=== PATIENT | female | born 1965 | race Caucasian/White ===

== ENCOUNTER 2022-04-22 07:30 | Outpatient (RCR) | payer OTHER, SELFPAY | END 2022-06-24 14:27 | disposition home or self-care (01) | PROVIDERS: PCP Orthopaedic Surgery; Visit Provider Orthopaedic Surgery | DX: Z98.890 Other specified postprocedural states (principal); Z51.89 Encounter for other specified aftercare | CPT/HCPCS: 97110; 97116; 97162 ==

== ENCOUNTER 2024-11-10 12:15 | Emergency (ER) | payer BC, SELFPAY ==
[2024-11-10] VITALS (10 sets, daily range): BP systolic 147; BP diastolic 80; PULSE 67; RESP 11–21; TEMP 36.5; O2SAT 97; BMI 35.4
--- OUTSIDE RECORDS SUMMARY | 2024-11-10 12:17 | XMS_ITS | Clinical Summary ---
Author Organization [facility] Address [address] [place] [address] Care Team Providers Care Price Checker Name Role Phone Tess Macias Primary Care Provider [phone] Allergies No known active allergies Medications multivitamin (MVI) tablet Take 1 tablet by mouth once daily. 0 09/06/2010 Active fexofenadine (JOSUE) 180 mg tablet Take 1 tablet by mouth once daily with a meal. 0 10/11/2011 Active cholecalciferol (VITAMIN D3) 2,000 unit capsule Take 2 capsules by mouth once daily. 0 06/14/2013 Active fluticasone (50 mcg per actuation) nasal solution (FLONASE)Indica tions:Seasonal allergies Inhale 1-2 Sprays into affected nostril(s) once daily. 48 g 3 03/08/2024 Active estradioL (ESTRACE) 1 mg tabletIndicatio ns:Hot flashes due to menopause Take 1 Tablet (1 mg) by mouth once daily. 90 Tablet 1 06/06/2024 Active levothyroxine (SYNTHROID) 125 mcg tabletIndicatio ns:Hypothyroidi sm, adult Take 1 Tablet (125 mcg) by mouth before breakfast. 90 Tablet 2 06/05/2024 Active losartan 50 mg tabletIndicatio ns:HTN (hypertension) Take 1 Tablet (50 mg) by mouth once daily. 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 ee 10/02/2023 Primary osteoarthritis of right knee 09/15/2023 S/P left knee arthroscopy 03/15/2022 Pes anserinus tendinitis and bursitis 03/15/2022 HTN (hypertension) 01/28/2022 Chronic pain of left knee 12/25/2020 History of left knee surgery 12/25/2020 Arthritis of left knee 12/25/2020 Iliotibial band tendinitis of left side 12/26/19 21 Routine adult health maintenance 04/24/2019 Overview (04/24/2019): Colonoscopy 04/2019 normal, repeat in 10 years Seasonal allergies 10/21/2013 Unspecified hypothyroidism 06/04/2010 Resolved Problems Problem Noted Date Diagnosed Date Resolved Date Genetic disorder 09/06/2010 03/02/2024 Overview (12/29/2015): Fh of stomach cancer gene but patient never tested. Choose not to be tested Paternal side cousin and possibly another cousin may have from this issue Possibly her paternal uncle CDH1 + in family Encounters Date Type Department Care Team Description 09/17/2024 7:30 AM CDT Office Visit [facility] [address] [place] [address] Tess Macias PA Follow Up (Recheck BP and lab) 09/16/2024 Travel 09/07/[address] [facility] [address] [place] [address] Tess Macias PA Refill Request (Omeprazole) 08/20/2024 9:00 AM CDT Nurse/Clinic Staff Only [facility] [address] [facility] [place] [address] 08/20/2024 Travel from Last 3 Months Immunizations Immunization Administration Dates Next Due COVID-19 vaccine (Moderna 100mcg/0.5mL) PF, MDV 09/03/2020,08/10/2020 HepA-HepB (Twinrix) 09/04/2004, 5,03/12/2004,2003 Hepatitis A (Adult) 09/04/2004 Hepatitis B (Adult) 09/04/2004 INFLUENZA, IIV3 PF (AGE >= 6 MO) 03/21/2024 Influenza Virus, Unspecified 03/06/2018 Influenza, IIV3 (Age >=3 years) 02/25/20 14,02/15/2011,03/14/2008,1998 Influenza, IIV4 03/03/2023, 2,02/17/2021,2019,03/05/2019 Influenza, IIV4 (=>6mos) MDV 03/18/2019, 02/20/2018,02/16/2017,2015,03/04/2015 Influenza,LAIV4 Live Intrana rodney (Flumist) 02/24/2014 Td (Age >=7 Years) 12/13/2001,11/20/2001 Tdap 08/04/2019,09/06/2010 Zoster (Shingrix-RZV, recombinant) 08/06/2019,,01/05/2019 Family History Medical History Relation Name Comments Cancer Brother skin precancero us Heart Disease Father Other Father genetic stomach cancer rare disease /cateracs Stroke Father Thyroid Disease Father Cancer-breast Maternal Aunt Cancer-breast Maternal Grandmother Cancer-colon Mother age 65 Hypertension Mother Other Mother falls, now age 78. hx closed head trauma Cancer Sister skin precancero us Anesthesia Problem No Family History Relation Name Status Comments Brother Father Maternal Aunt Maternal Grandmother Mother Sister Social History Tobacco Use Types Packs/Day Years Used Date Smoking Tobacco: Former Cigarettes Q uit: 05/22/1995 Smokeless Tobacco: Never Tobacco Cessation:Counseling Given: Yes Alcohol Use Standard Drinks/Week Comments Yes 0 (1 standard drink = 0.6 oz pur e alcohol) PHQ-2 Answer Date Recorded PHQ-2 TOTAL SCORE 2 09/17/2024 Social Connections Answer Date Recorded Do you often feel lonely or isolated from those around you? 0 02/29/2024 Alcohol Use Answer Date Recorded How often do you have a drink containing alcohol ? 3 02/17/2022 How many drinks containing a lcohol do you have on a typical day when you are drinking? 0 02/17/2022 How often do you have five or more drinks on one occasion? 0 02/17/2022 Financial Resource Strain Answer Date R ecorded Difficulty of Paying Living Expenses 3 02/29/2024 Difficulty of Paying Living Expenses Not on file 02/29/2024 Food Insecurity Answer Date Recorded Do you worry your food will run out before you are able to buy more? 1 02/29/2024 Transportation Needs Answer Date Record ed Does lack of transportation keep you from medica l appointments? 1 02/29/2024 Does lack of transportation keep you from work, meetings or getting things that you need? 1 02/29/2024 Housing Stability Answer Date Recorded What is your housing situation today? 1 02/29/2024 Utilities Answer Date Recorded Do you have trouble paying f or utilities (for example, heat, electricity, water, phone)? 1 02/29/2024 Comments No Sex and Gender Information Value Date Recorded Sex Assigned at Female 06/08/2021 10:06 PM LOCAL DELIVERY TRUCK DRIVER Legal Sex Female 6:06 AM LOCAL DELIVERY TRUCK DRIVER Gender Identity Female 06/08/2021 10:06 PM LOCAL DELIVERY TRUCK DRIVER Sexual Orientation Straight 06/08/2021 10 :06 PM LOCAL DELIVERY TRUCK DRIVER Obstetrics History Para Term AB IAB SAB Ectopic Multiple Livin g Live Births 0 0 0 0 0 0 0 0 0 0 Last Filed Vital Signs Vital Sign Reading Time Taken Comments Blood Pressure 134/84 09/17/2024 7:35 AM CDT Pulse 76 09/17/2024 7:35 AM CDT Temperature 36.8 C (98.2 F) 07/12/2024 7:17 AM LOCAL DELIVERY TRUCK DRIVER Respiratory Rate 16 02/03/2022 4:00 PM CDT Oxygen Saturation 96% 09/17/2024 7:35 AM CDT Inhaled Oxygen Concentration - - Weight 97.1 kg (214 lb) 09/17/2024 7:35 AM CDT Height 164.2 cm (5' 4.65) 12/28/2023 11:54 AM C DT Body Mass Index 36 12/28/2023 11:54 AM CDT Plan of Treatment Upcoming Encounters Date Type Department Care Team (Late st Contact Info) Description 12/06/2024 8:00 AM CDT Office [facility] [address] [place] [address] Boni Morley MD [address] [facility] [address] [place] [address] Health Maintenance Due Date Last Done Comments Pneumococcal series for age 50+ (1 of 1 - PCV) 2014 COVID-19 vaccine series (5 - 2023- season) 2024 03/30/2022, 03/29/2021, 09/03/2020, Additional history exists RSV vaccine for adults or (1 - Risk 60-74 years 1-dose series) 2024 BMI (ht and wt on same day) for age 18+ 12/27/2024 12/28/2023, 11/02/2023, 03/03/2023, Additional history exists Mammogram for age 45-75 03/11/2025 03/11/20 24, 05/10/2022, 05/29/2018, Additional history exists Depression screening for age 12+ 09/17/2025 09/17/2024, 03/03/2023, 03/02/2023, Additional history exists Colonoscopy through age 75 04/24/202904/24, 04/24/2019, 04/24/2019 Tetanus booster 08/03/2029 08/04/2019, 08/20, 12/13/2001, Additional history exists Lipids for age 45-75 09/17/2029 09/17/2024, 03/03/2023, 06/23/2021, Additional history exists Hepatitis B series for 19+ Completed 09/04, 09/04/2004, 08/25/2004, Additional history exists Hepatitis C screening for ag e 18-79 Completed 07/09/2014 Tdap Completed 08/04/2019, 09/06/2010 Zoster (shingles) series for age 50+ Completed 08/06/2019, 01/05/2019, 01/05/2019 HIV for age 15-65 Completed 03/03/2023 Influenza Vaccine Completed 03/21/2024, , 02/17/2022, Additional history exists Procedures Procedure Name Priority Date/Time Associated Diagnosis Comments BASIC METABOLIC PANEL Routine 09/17/2024 8:17 AM CDT HTN (hypertension) LIPID PANEL W REFLEX MEASURED LDL Routine 09/17/2024 8:17 AM CDT Screening cholesterol level HEMOGLOBIN A1C Routine 09/17/2024 8:17 AM CDT Diabetes mellitus screening XR MAMMO KATIA BILAT SCREEN Routine 03/11/2024 7:54 AM CDT Visit for screening mammogram ANTI HIV 1/2 Routine 03/03/2023 9:10 AM CDT Screening for HIV (human immunodeficiency virus) COLONOSCOPY 04/24/2019 8:41 AM LOCAL DELIVERY TRUCK DRIVER ANTI HCV Routine 07/09/2014 9:38 AM LOCAL DELIVERY TRUCK DRIVER Need for hepatitis C screening test from Last 3 Months or Most Recently Relevant to Health Maintenance Results * HEMOGLOBIN A1C (09/17/2024 8:17 AM CDT) HEMOGLOBIN A1C 5.6 <5.7 % [facility] Comment: For the purpose of screening for the presence of diabetes: <5.7% Consistent with the absence of diabetes 5.7-6.4% Consistent with increased risk for diabetes (prediabetes) > or =6.5% Consistent with diabetes This assay result is consistent with a decreased risk of diabetes. Currently, no consensus exists regarding use of hemoglobin A1c for diagnosis of diabetes in children. According to [place] [employer] (ADA) guidelines, hemoglobin A1c <7.0% represents optimal control in non- diabetic patients. Different metrics may apply to specific patient populations. Standards of Medical Care in Diabetes(ADA). Blood BLOOD SPECIMEN / Unknown 09/17/2024 8:17 AM CDT 09/17/2024 8:18 AM CDT us Tess POLO CHEMISTRY Final Resu lt Performing Organization Address [facility]/ZIP Co de Phone Number [facility] [address] [place] [address], [facility] [address] [place] [address] * (ABNORMAL) LIPID PANEL W REFLEX MEASURED LDL (09/17/2024 8:17 AM CDT) CHOLESTEROL, TOTAL 187 <200 mg/dL [facility] HDL CHOLESTEROL 54 > OR = 50 mg/dL [facility] TRIGLYCERIDES 118 <150 mg/dL [facility] LDL-CHOLESTEROL 110(H) mg/dL (calc) [facility] Comment: Reference range: <100 Desirable range <100 mg/dL for primary prevention; <70 mg/dL for patients with CHD or diabetic patients with > or = 2 CHD risk factors. LDL-C is now calculated using the Cm calculation, which is a validated novel method providing better accuracy than the Friedewald equation in the estimation of LDL-C. Guillermo SS et al. HERMELINDO. 2013;310(19): 2663-8225 (http://education.Zample/faq/QFG889) CHOL/HDLC RATIO 3.5 <5.0 (calc) [facility] NON HDL CHOLESTEROL 133(H) <130 mg/dL (calc) [facility] Comment: For patients with diabetes plus 1 major ASCVD risk factor, treating to a non-HDL-C goal of <100 mg/dL (LDL-C of <70 mg/dL) is considered a therapeutic option. Blood BLOOD SPECIMEN / Unknown 09/17/2024 8:17 AM CDT 09/17/2024 8:18 AM CDT Tess POLO CHEMISTRY Final Resu lt Performing Organization Address City/[facility]/ZIP Co de Phone Number [facility] [address] [place] [address], [facility] [address] [place] [address] * BASIC METABOLIC PANEL (09/17/2024 8:17 AM CDT) GLUCOSE 94 65 - 99 mg/dL [facility] Comment: Fasting reference interval UREA NITROGEN (BUN) 12 7 - 25 mg/dL [facility] CREATININE 0.76 0.50 - 1.05 mg/dL [facility] EGFR 90 > OR = 60 mL/min/1. 73m2 [facility] BUN/CREATININE RATIO SEE NOTE: 6 - 22 (calc) [facility] Comment: Not Reported: BUN and Creatinine are within reference range. SODIUM 139 135 - 146 mmol/L [facility] POTASSIUM 4.8 3.5 - 5.3 mmol/L [facility] CHLORIDE 105 98 - 110 mmol/L [facility] CARBON DIOXIDE 27 20 - 32 mmol/L [facility] ELECTROLYTE BALANCE 7 7 - 17 mmol/L (calc) [facility] CALCIUM 9.6 8.6 - 10.4 mg/dL [facility] Blood BLOOD SPECIMEN / Unknown 09/17/2024 8:17 AM CDT 09/17/2024 8:18 AM CDT us Tess POLO CHEMISTRY Final Resu lt [facility] [address] [place] [address], [facility] [address] [place] [address] * XR MAMMO KATIA BILAT SCREEN (03/11/2024 7:54 AM CDT) Anatomical Region Laterality Modality BREASTS, Breast Left, Breast Right Bilateral Mammography Impressions 03/11/2024 3:03 PM CDT There is no radiographic evidence for malignancy. Recommend annual mammograms. MAMMOGRAM ASSESSMENT: ACR 1 Negative PATIENTS: You will also receive a letter with your examination results in an easy to read format. If you have questions about your results, please contact your referring provider. Narrative 03/11/2024 3:03 PM CDT For Patients: As a result of the Century Cures Act, medical imaging exams and procedure reports are released immediately into your electronic medical record. You may view this report before your referring provider. If you have questions, please contact your health care provider. XR MAMMO KATIA BILAT SCREEN [[id number]] CLINICAL HISTORY: This is an asymptomatic 58 y.o. patient. INDICATION FOR EXAM: Mammogram Screening. TECHNIQUE: CC & MLO views were obtained. This study was evaluated with the assistance of Computer-Aided Detection. Breast Tomosynthesis was used in interpretation. COMPARISON FILM: Yes 05/10/22 [facility] 05/29/18 [facility] [employer] FINDINGS: There are scattered areas of fibroglandular density. There are no dominant masses, suspicious micro calcifications or areas of architectural distortion. Tess POLO MAMMO Final Resu lt * ANTI HIV 1/2 (03/03/2023 9:10 AM CDT) HIV-1/HIV-2 SCREEN Non-Reacti ve Non-Reacti ve 03/03/2023 5:10 PM CDT [facility] Comment:HIV-1 p24 and HIV-1/ HIV-2 Ab Not Detected. Blood BLOOD SPECIMEN / Unknown Venipuncture / Unknown 03/03/2023 9:10 AM CDT 03/03/2023 9:11 AM CDT Tess POLO SEND OUTS Final Resu lt [facility] [address] [place] [address], * COLONOSCOPY (04/24/2019 8:41 AM LOCAL DELIVERY TRUCK DRIVER) 04/24/2019 8:41 AM LOCAL DELIVERY TRUCK DRIVER Narrative Transcriptions Guillermo Conway MD - 04/24/2019 9:41 AM CST Patient Name: Josie Varghese Procedure Date: 04/24/2019 Gender: Female Date of : 1965 Admit Type: Outpatient Procedure: Colonoscopy Proceduralist: Guillermo Conway MD , Kenyatta Enriquez (Nurse) Indications/Pre-Op Diagnosis: Screening for colorectal malignant neoplasm, Last CT colonoscopy: 1998 Medications: Fentanyl 100 micrograms IV, Midazolam 4 mgIV, The level of sedation administered wasmoderate Procedure Description: The patient had risks, benefits and alternatives explained to andgave informed consent. The patient had a stable cardiopulmonary status and judged an adequate candidate for conscious sedation. The Colonoscope was passed through the anus and advanced to thececum, identified by appendiceal orifice and ileocecal valve. Thecolonoscopy was performed without difficulty. The patient tolerated the procedure well. The quality of the bowel preparation was good. The terminalileum, ileocecal valve, appendiceal orifice, and rectum were photographed. Complications: No immediate complications. Estimated Blood Loss & Specimen: Estimated blood loss: none. Specimen collected - None Findings: The perianal and digital rectal examinations were normal. The terminal ileum appeared normal. The entire examined colon appeared normal on direct and retroflexion views. Impressions/Post-Op Diagnosis: - The examined portion of the ileum was normal. - The entire examined colon is normal on direct and retroflexionviews. - No specimens collected. Recommendation: - Patient has a contact number available for emergencies. The signsand symptoms of potential delayed complications were discussed with the patient. Return to normal activities tomorrow. Written discharge instructions were provided to the patient. - Resume previous diet. - Continue present medications. - Repeat colonoscopy in 10 years for screening purposes. Moderate Sedation: Moderate (conscious) sedation was administered by the endoscopy nurse and supervised by the endoscopist. The following parameters were monitored: oxygen saturation, heart rate, respiratory rate, blood pressure, adequacy of pulmonary ventilation and reponse to care. Please refer to the patien'ts medical record flowsheets and nursing notes for moderate sedation details. Total physician intraservice time was 15 minutes. Guillermo Conway MD 04/24/2019 9:07:01 AM This report has been signed electronically. Note Initiated On: 04/24/2019 8:41 AM Procedure Code(s): --- Professional --- 91006, Colonoscopy, flexible; diagnostic, including collection of specimen(s) bybrushing or washing, when performed (separateprocedure) Diagnosis Code(s): --- Professional --- Z12.11, Encounter for screening formalignant neoplasm of colon CPT copyright 2018 [place] [employer]. All rights reserved. The codes documented in this report are preliminary and upon medical biller coder reviewmay be revised to meet current compliance requirements. Scope In: 8:50:38 AM Scope Withdrawal Time 0 hours 7 minutes 2 seconds Scope Out: 9:02:46 AM Guillermo Conway MD PROCEDURE ORD Edited Re sult - Final * ANTI HCV (07/09/2014 9:38 AM LOCAL DELIVERY TRUCK DRIVER) HEPATITIS C ANTIBODY Non-Reacti ve Non-Reacti ve 07/09/2014 4:09 PM LOCAL DELIVERY TRUCK DRIVER [facility] Blood specimen (specimen) BLOOD SPECIMEN / Unknown Venipuncture / Unknown 07/09/2014 9:38 AM LOCAL DELIVERY TRUCK DRIVER 07/09/2014 9:38 AM LOCAL DELIVERY TRUCK DRIVER Narrative [facility] - 07/09/2014 4:09 PM LOCAL DELIVERY TRUCK DRIVER Antibodies to HCV not detected; does not exclude the possibility of exposure to HCV. us Jessica Niurka Pal Ruppel LOG YARD MANAGER SEND OUTS F inal Result [facility] [address] [place] [address], from Last 3 Months or Most Recently Relevant to Health Maintenance Insurance [facility] NON-OR-ITS Advance Directives * Full Code (Latest Code Status on File) Date Activated Date Inactivated Comments 02/03/2022 10:24 AM 02/03/2022 7:08 PM Question Answer Comments Code Status Discussion: Reviewed Preferences Care Teams Price Checker Relationship Specialty Start Date End Date Tess Macias [place] [address] PCP - General Physician Supervisor [employer] 03/03/23
--- NOTE | 2024-11-10 12:43 | CRLHL7_ITS ---
For Patients: As a result of the Century Cures Act, medical imaging exams and procedure reports are released immediately into your electronic medical record. You may view this report before your referring provider. If you have questions, please contact your health care provider. INDICATION: Chest pain TECHNIQUE: Chest radiograph 1 view COMPARISON: None FINDINGS: The sensitivity and specificity of the exam are moderately limited by the patient`s body habitus. Mediastinum: The mediastinum is normal in appearance. The heart silhouette is normal in size and morphology. Lung: Both lungs are unremarkable in appearance. No sign of pleural effusion seen. No pneumothorax is identified. Bone and Soft tissue: Unremarkable for age. IMPRESSION: 1. No acute cardiopulmonary disease is seen. Dictated by: Timothy Vail MD @ 11/10/2024 14:13:56 (Electronically Signed)
--- NOTE | 2024-11-10 12:47 | ED.GENADULT ---
HPI - General Adult General Date Seen: 11/10/24 Chief complaint: Chest Pain Stated complaint: CHEST DISCOMFORT / JAW PAIN Time Seen by Provider: 11/10/24 12:16 History of Present Illness HPI narrative: Patient is a 59-year-old here with her for evaluation of an episode of chest discomfort earlier today. She says she was sitting outside this morning, they had just eaten breakfast and she was sitting outside under a tree, it is exceedingly hot outside today and so she wonders if symptoms were sparked by that. She says that she developed discomfort in the center of her chest associated with bilateral jaw pain. She went inside, symptoms persisted for 10-15 minutes and then resolved and have not recurred. She notes that she is fairly active, has been biking 9-10 miles 2 to 3 times a week recently without any chest discomfort, shortness of breath or decreased exercise tolerance. She does not smoke, does have a history of hypertension, dad had a heart attack in his mid 60s. She has no prior history of coronary artery disease. She did not have associated shortness of breath, nausea, vomiting, diaphoresis, lightheadedness or fainting. She feels back to normal now. Denies any other recent illness, fevers, cough, lower extremity swelling or pain, travel or immobility. Related Data Home Medications ?Medication ?Instructions ?Recorded ?Confirmed estradiol 1 mg tablet (Estrace) 1 mg PO DAILY 11/10/24 11/10/24 levothyroxine 125 mcg tablet 125 mcg PO DAILY 11/10/24 11/10/24 (Euthyrox) losartan 50 mg tablet 50 mg PO DAILY 11/10/24 11/10/24 Allergies Allergy/AdvReac Type Severity Reaction Status Date / Time cat dander Allergy Mild Nasal Verified 11/10/24 12:22 Discharge Review of Systems Status of ROS: Reports: 10 or more systems reviewed and unremarkable except as noted in History and below Exam Narrative: Exam Narrative: Vital signs reviewed In general, alert, nontoxic manage woman, looks comfortable. Head: Normocephalic, atraumatic. Eyes: Sclera clear. Pupils equal and reactive. ENT: Mucous membranes moist. Neck: Supple without adenopathy. Heart: Regular rate and rhythm without murmur. Lungs: Clear. No increased work of breathing, crackles or wheezes. Abdomen: Soft, nontender to palpation. Extremities: Well perfused, pulses intact. No significant edema. Neurologic: Alert, conversant. Speech fluent, face symmetric. Moves all extremities equally. Skin: Warm, dry well perfused. Affect: Normal. Const: Vital Signs, click to edit/add: Vital Signs - 24 hr 11/10/24 12:29 11/10/24 13:21 11/10/24 13:30 Temperature 97.7 F Pulse Rate [Pulse Oximeter] 67 Respiratory Rate 16 11 L 21 Blood Pressure [Ri ght Upper Arm] 147/80 H Pulse Oximetry 97 Oxygen Delivery Me thod Room Air 11/10/24 13:45 11/10/24 14:00 11/10/24 14:15 Temperature Pulse Rate [Pulse Oximeter] Respiratory Rate 14 12 16 Blood Pressure [Ri ght Upper Arm] Pulse Oximetry Oxygen Delivery Me thod 11/10/24 14:30 11/10/24 14:45 11/10/24 15:00 Temperature Pulse Rate [Pulse Oximeter] Respiratory Rate 18 12 13 Blood Pressure [Ri ght Upper Arm] Pulse Oximetry Oxygen Delivery Me thod 11/10/24 15:15 Temperature Pulse Rate [Pulse Oximeter] Respiratory Rate 11 L Blood Pressure [Ri ght Upper Arm] Pulse Oximetry Oxygen Delivery Me thod Course Course ED Course: Patient presents with an episode of chest discomfort now resolved, couple of risk factors for heart disease, symptoms are somewhat suggestive although they occurred at rest and she has no history of exertional symptoms. Nonetheless, diagnostic considerations would include acute coronary syndrome or angina, pericarditis, pulmonary embolism, esophagitis, esophageal spasm, pneumothorax, biliary colic, among others. EKG and labs ordered. Recommended a repeat troponin in 2 hours assuming the 1st is negative. If workup here is normal, would recommend stress test as an outpatient. She says that she has had a stress test before although was a number of years ago. She cannot be ruled out by PERC criteria secondary to her age so I did do a D-dimer although my clinical suspicion for PE is relatively low. An EKG here shows sinus bradycardia with a ventricular rate of 59, no acute ST segment changes, unremarkable T-waves. Labs are all reviewed and are reassuring. Troponin is negative at time 0 and 2 hours. D-dimer is normal. She continues to feel well and is asymptomatic. Discussed with her that I do not have an explanation for her symptoms, the fact that she has not had any exercise-induced symptoms is somewhat reassuring but I do think she needs a stress test to further evaluate this. Discussed that if she has recurrent/persistent or severe symptoms at home she needs to come back at any point. I did set her up for a dobutamine echo, she does not feel that she would be able to manage at treadmill echo at this point because of problems with her knee. Results should go to her primary doctor, Tess Macias and she understands she should make a follow-up appointment with her. Vital Signs Vital signs: Initial Vital Signs Temperature 97.7 F 11/10/24 12:29 Temperature Source Temporal Artery Scan 11/10/24 12:29 Pulse Rate 67 11/10/24 12:29 Respiratory Rate 16 11/10/24 12:29 Blood Pressure 147/80 H 11/10/24 12:29 Blood Pressure Mean 102 11/10/24 12:29 Blood Pressure Position Sitting 11/10/24 12:29 Pulse Oximetry 97 11/10/24 12:29 Oxygen Delivery Method Room Air 11/10/24 12:29 Vital Signs Temperature 97.7 F 11/10/24 12:29 Pulse Rate 67 11/10/24 12:29 Respiratory Rate 16 11/10/24 12:29 Blood Pressure 147/80 H 11/10/24 12:29 Pulse Oximetry 97 11/10/24 12:29 Oxygen Delivery Method Room Air 11/10/24 12:29 Temperature 97.7 F 11/10/24 12:29 Pulse Rate 67 11/10/24 12:29 Respiratory Rate 11 L 11/10/24 15:15 Blood Pressure 147/80 H 11/10/24 12:29 Pulse Oximetry 97 11/10/24 12:29 Oxygen Delivery Method Room Air 11/10/24 12:29 Medications Administered Medications: Discontinued Medications Generic Name Dose Route Start Last Admin Trade Name Freq PRN Reason Stop Dose Admin Aspirin 324 mg 11/10/24 12:42 11/10/24 13:40 Aspirin 81 Mg Tab.Chew PO 11/10/24 12:43 324 mg ONCE ONE Administration Medical Decision Making Lab Data Lab results reviewed: Yes I reviewed the patient's lab results Labs: Lab Results 11/10/24 11/10/24 11/10/24 Range/Units 12:44 13:02 15:00 WBC 6.58 (4.50-11.00) K/uL RBC 4.66 (4.00-5.20) m/uL Hgb 13.3 (12.0-16.0) gm/dL Hct 40.8 (33.0-51.0) % MCV 88 (80-100) fL MCH 29 (26-34) pg MCHC 33 (32-36) gm/dL RDW Coeff of Johnson 12.1 (11.5-15.5) % Plt Count 215 (140-440) K/uL Neut % (Auto) 62.0 (42.0-72.0) % Lymph % (Auto) 25.1 (20-44) % [place] % (Auto) 8.4 (0.0-11.0) % Eos % (Auto) 3.3 (0.0-7.0) % Baso % (Auto) 0.6 (0.0-3.0) % Neut # (Auto) 4.08 (1.7-7.0) K/uL Lymph # (Auto) 1.65 (0.90-2.90) K/uL [place] # (Auto) 0.60 (0.00-0.90) K/UL Eos # (Auto) 0.22 (0.00-0.50) K/uL Baso # (Auto) 0.04 (0.00-0.30) K/uL Abs Immat Gran (auto) 0.04 (0.00-0.30) K/uL Imm/Tot Granulo (auto) 0.6 % D-Dimer Quant (PE/DVT) < 0.27 (0.00-0.50) ug/ml Sodium 137 (135-149) mmol/L Potassium 4.2 (3.6-5.1) mmol/L Chloride 107 (96-114) mmol/L Carbon Dioxide 25 (20-32) mmol/L Anion Gap 5 L (7-15) mEq/L BUN 13 (7-30) mg/dL Creatinine 0.8 (0.5-1.5) mg/dL Estimated Creat Clear 67.29 Estimated GFR 84 ml/min Glucose 101 (60-115) mg/dL Calcium 9.3 (8.4-10.6) mg/dL Total Bilirubin 0.5 (0.1-1.5) mg/dL Direct Bilirubin 0.1 (0.0-0.5) mg/dL AST 26 (12-35) U/L ALT 19 (4-35) U/L Alkaline Phosphatase 73 (40-150) U/L Total Protein 7.0 (6.0-8.3) g/dL Albumin 4.2 (3.3-5.0) g/dL POC Troponin I 0.01 0.00 L (0.01-0.04) ng/ml Imaging Data Chest x-ray: Attestation: I have reviewed the pertinent imaging results. Radiologist's impression: Patient: Josie Varghese MR#: [id number] : 1965 Acct:[id number] Loc: ED Service Date: 11/10/[address]: Ordering Physician: Tess Flores M.D. Date of Service: 11/10/24 Procedure(s): XR chest 1V portable Accession Number(s): [id number] cc: Tess Flores M.D.; Tess Macias PA-C~ For Patients: As a result of the Cures Act, medical imaging exams and procedure reports are released immediately into your electronic medical record. You may view this report before your referring provider. If you have questions, please contact your health care provider. INDICATION: Chest pain TECHNIQUE: Chest radiograph 1 view COMPARISON: None FINDINGS: The sensitivity and specificity of the exam are moderately limited by the patient`s body habitus. Mediastinum: The mediastinum is normal in appearance. The heart silhouette is normal in size and morphology. Lung: Both lungs are unremarkable in appearance. No sign of pleural effusion seen. No pneumothorax is identified. Bone and Soft tissue: Unremarkable for age. IMPRESSION: 1. No acute cardiopulmonary disease is seen. Dictated by: Timothy Vail MD @ 11/10/2024 14:13:56 Discharge Plan Discharge Clinical Impression: Chest pain Patient Disposition: Home, Self-Care Condition: Stable Instructions: Chest Pain (DC) Additional Instructions: Your workup today does not show an obvious cause for your symptoms. Your labs are normal, and there is no evidence to suggest that you had a heart attack, blood clot, pneumonia, or other serious cause for your chest pain. I have set up an order for a stress test as an outpatient, to further evaluate for any evidence of heart disease. You should receive a phone call to get this scheduled. In the meantime, I would encourage you to avoid strenuous activity. If you have recurrent persistent or severe symptoms, return to the ER at any time. You should follow-up with your primary doctor after your stress test. Prescriptions: No Action estradiol [Estrace] 1 mg tablet 1 mg PO DAILY Rx Instructions: off 1 week; repeat cycle levothyroxine [Euthyrox] 125 mcg tablet 125 mcg PO DAILY losartan 50 mg tablet 50 mg PO DAILY Follow Up/Referrals: Boni Morley MD [Referring, Back & Spine] Stand Alone Forms: [employer] Info Instructions
[2024-11-10 13:12] LABS: Basophils Absolute Auto 0.04 K/uL (0.00-0.30); Basophils Percent Auto 0.6 % (0.0-3.0); Eosinophils Absolute Auto 0.22 K/uL (0.00-0.50); Eosinophils Percent Auto 3.3 % (0.0-7.0); Hematocrit 40.8 % (33.0-51.0); Hemoglobin* 13.3 gm/dL (12.0-16.0); Immature Granulocytes Abs Auto 0.04 K/uL (0.00-0.30); Immature Granulocytes Pct Auto 0.6 %; Lymphocytes Absolute Auto 1.65 K/uL (0.90-2.90); Lymphocytes Percent Auto 25.1 % (20-44); Mean Corpuscular HGB Conc 33 gm/dL (32-36); Mean Corpuscular Hemoglobin 29 pg (26-34); Mean Corpuscular Volume 88 fL (80-100); Monocytes Percent Auto 8.4 % (0.0-11.0); Neutrophils Absolute Auto 4.08 K/uL (1.7-7.0); Platelet Count* 215 K/uL (140-440); RDW Coefficient of Variation % 12.1 % (11.5-15.5); Red Blood Count 4.66 m/uL (4.00-5.20); White Blood Count* 6.58 K/uL (4.50-11.00)
[2024-11-10 13:14] LABS: Slide Review Reflex No
[2024-11-10 13:31] LABS: Albumin* 4.2 g/dL (3.3-5.0); Chloride* 107 mmol/L (96-114); Sodium* 137 mmol/L (135-149)
[2024-11-10 13:32] LABS: Potassium* 4.2 mmol/L (3.6-5.1)
[2024-11-10 13:34] LABS: Alanine Aminotransferase* 19 U/L (4-35); Alkaline Phosphatase* 73 U/L (40-150); Anion Gap 5 mEq/L (7-15); Aspartate Amino Transferase* 26 U/L (12-35); Bilirubin Direct* 0.1 mg/dL (0.0-0.5); Bilirubin Total* 0.5 mg/dL (0.1-1.5); Blood Urea Nitrogen* 13 mg/dL (7-30); Carbon Dioxide* 25 mmol/L (20-32); Creatinine* 0.8 mg/dL (0.5-1.5); Est. Creatinine Clearance* 67.29; Estimated Glomerular Filt Rate 84 ml/min
[2024-11-10 13:35] LABS: Calcium* 9.3 mg/dL (8.4-10.6); Glucose* 101 mg/dL (60-115)
[2024-11-10] MEDS: ASPIRIN 81 MG TAB.CHEW 324 MG PO (13:40)
[2024-11-10 13:47] LABS: Troponin, Point-of-Care* 0.01 ng/ml (0.01-0.04)
[2024-11-10 13:57] LABS: D Dimer Quantitative* < 0.27 ug/ml (0.00-0.50)
== END 2024-11-10 15:52 | disposition home or self-care (01) ==
PROVIDERS: Emergency Provider Emergency Medicine; PCP Physician Assistant
DX: R07.9 Chest pain, unspecified (principal)
CPT/HCPCS: 36415; 71045; 80048; 80076; 84484; 85025; 85379; 93005; 99284; 99285; A9270

== ENCOUNTER 2024-11-19 08:17 | Outpatient (CLI) | payer BC, SELFPAY ==
--- OUTSIDE RECORDS SUMMARY | 2024-11-19 08:24 | XMS_ITS | Clinical Summary ---
Author Organization [facility] Address [address] [place] [id number] Care Team Providers Care Civil Design Technician Name Role Phone Tess Macias Primary Care Provider [phone] Allergies No known active allergies Medications multivitamin [...] Encounters Date Type Department Care Team Description 11/10/2024 Orders Only [facility] Scanner 1 scan: (1-Ord) [place], CHEST 1V PORTABLE, 11/10/2024 09/17/2024 7:30 AM CDT Office Visit [facility] [address] [place] [address] Tess Macias PA Follow Up (Recheck BP and lab) 09/16/2024 Travel 09/07/2024 Refill [facility] [address] [place] [address] Tess Macias PA Refill Request (Omeprazole) 08/20/2024 9:00 AM CDT Nurse/Clinic Staff Only [facility] [address] [place] [address] 08/20/2024 Travel from Last 3 Months Immunizations [...] Sex Assigned at Female 06/08/2021 10:06 PM MANAGED SERVICES SALES CONSULTANT Legal Sex Female 6:06 AM MANAGED SERVICES SALES CONSULTANT Gender Identity Female 06/08/2021 10:06 PM MANAGED SERVICES SALES CONSULTANT Sexual Orientation Straight 06/08/2021 10 :06 PM MANAGED SERVICES SALES CONSULTANT Obstetrics History Para Term AB IAB SAB Ectopic Multiple Livin g Live Births 0 0 0 0 0 0 0 0 0 0 Last Filed Vital Signs Vital Sign Reading Time Taken Comments Blood Pressure 134/84 09/17/2024 7:35 AM CDT Pulse 76 09/17/2024 7:35 AM CDT Temperature 36.8 C (98.2 F) 07/12/2024 7:17 AM MANAGED SERVICES SALES CONSULTANT Respiratory Rate 16 02/03/2022 4:00 PM CDT Oxygen Saturation 96% 09/17/2024 7:35 AM CDT Inhaled Oxygen Concentration - - Weight 97.1 kg (214 lb) 09/17/2024 7:35 AM CDT Height 164.2 cm (5' 4.65) 12/28/2023 11:54 AM C DT Body Mass Index 36 12/28/2023 11:54 AM CDT Plan of Treatment Upcoming Encounters Date Type Department Care Team (Late st Contact Info) Description 11/19/2024 8:50 AM CDT Ancillary Procedure [facility] [address] [place] [address] 12/06/2024 8:00 AM CDT Office Visit [facility] [address] [place] [address] Boni Morley MD [address] [facility] [address] [place] [address] Health Maintenance Due Date Last Done Comments Pneumococcal series for age 50+ (1 of 1 - PCV) 2014 COVID-19 vaccine series ( - season) 2024 03/30/2022, 03/29/2021, 09/03/2020, Additional history exists RSV vaccine for adults or (1 - Risk 60-74 years 1-dose series) 2024 BMI (ht and wt on same day) for age 18+ 12/27/2024 12/28/2023, 11/02/2023, 03/03/2023, Additional history exists Influenza Vaccine (#1) 2025 , 03/03/2023, 02/17/2022, Additional history exists Mammogram for age 45-75 [...] screening for ag e 18-79 Completed 07/09/2014 Zoster (shingles) series for age 50+ Completed 08/06/2019, 01/05/2019, 01/05/2019 HIV for age 15-65 Completed 03/03/2023 Procedures Procedure Name Priority Date/Time Associated Diagnosis Comments SCAN-RADIOLOGY REPORT 11/10/2024 12:00 AM CDT BASIC METABOLIC PANEL Routine 09/17/2024 8:17 AM [...] (human immunodeficiency virus) COLONOSCOPY 04/24/2019 8:41 AM MANAGED SERVICES SALES CONSULTANT ANTI HCV Routine 07/09/2014 9:38 AM MANAGED SERVICES SALES CONSULTANT Need for hepatitis C screening test from Last 3 Months or Most Recently Relevant to Health Maintenance Results * SCAN-RADIOLOGY REPORT (11/10/2024 12:00 AM CDT) Anatomical Region Laterality Modality Other us Scanner OTHER Final Result * HEMOGLOBIN A1C (09/17/2024 8:17 AM CDT) HEMOGLOBIN A1C 5.6 <5.7 % [facility] Comment: For the purpose of screening for the presence of diabetes: <5.7% Consistent with the absence of diabetes 5.7-6.4% Consistent with increased risk for diabetes (prediabetes) > or =6.5% Consistent with diabetes This assay result is consistent with a decreased risk of diabetes. Currently, no consensus exists regarding use of hemoglobin A1c for diagnosis of diabetes in children. According to [place] Diabetes Association (ADA) guidelines, hemoglobin A1c <7.0% represents optimal control in non- diabetic patients. Different metrics may apply to specific patient populations. Standards of Medical Care in Diabetes(ADA). Blood BLOOD SPECIMEN / Unknown 09/17/2024 8:17 AM CDT 09/17/2024 8:18 AM CDT us Tess POLO CHEMISTRY Final Resu lt 1calendar [facility] [address] [place] [address], [facility] [address] [place] [address] * (ABNORMAL) LIPID PANEL W REFLEX MEASURED LDL (09/17/2024 8:17 AM CDT) [facility] CHOLESTEROL, TOTAL 187 <200 mg/dL [facility] HDL CHOLESTEROL 54 > OR = 50 mg/dL [facility] TRIGLYCERIDES 118 <150 mg/dL [facility] LDL-CHOLESTEROL 110(H) mg/dL (calc) [facility] Comment: Reference range: <100 Desirable range <100 mg/dL for primary prevention; <70 mg/dL for patients with CHD or diabetic patients with > or = 2 CHD risk factors. LDL-C is now calculated using the Guillermo-Garth calculation, which is a validated novel method providing better accuracy than the Friedewald equation in the estimation of LDL-C. Guillermo SS et al. HERMELINDO. 2013;310(19): 3585-8288 (http://education.[employer]/faq/JCV368) CHOL/HDLC RATIO 3.5 <5.0 (calc) [facility] NON HDL CHOLESTEROL 133(H) <130 mg/dL (calc) [facility] Comment: For patients with diabetes plus 1 major ASCVD risk factor, treating to a non-HDL-C goal of <100 mg/dL (LDL-C of <70 mg/dL) is considered a therapeutic option. Blood BLOOD SPECIMEN / Unknown 09/17/2024 8:17 AM CDT 09/17/2024 8:18 AM CDT Tess POLO CHEMISTRY Final Resu lt Performing Organization Address [facility] Co de Phone Number [facility] [address] [place] [address], [facility] [address] [place] [address] * BASIC METABOLIC PANEL (09/17/2024 8:17 AM CDT) [facility] GLUCOSE 94 65 - 99 mg/dL [facility] Comment: Fasting reference interval UREA NITROGEN (BUN) 12 7 - 25 mg/dL [facility] CREATININE 0.76 0.50 - 1.05 mg/dL [facility] EGFR 90 > OR = 60 mL/min/1. 73m2 [facility] BUN/CREATININE RATIO SEE NOTE: 6 - 22 (calc) [facility] Comment: Not Reported: BUN and Creatinine are within reference range. SODIUM 139 135 - 146 mmol/L [facility] POTASSIUM 4.8 3.5 - 5.3 mmol/L [facility] CHLORIDE 105 98 - 110 mmol/L [facility] CARBON DIOXIDE 27 20 - 32 mmol/L [facility] ELECTROLYTE BALANCE 7 7 - 17 mmol/L (calc) [facility] CALCIUM 9.6 8.6 - 10.4 mg/dL [facility] Blood BLOOD SPECIMEN / Unknown 09/17/2024 8:17 AM CDT 09/17/2024 8:18 AM CDT Tess POLO CHEMISTRY Final Resu lt 1calendar [facility] [address] [place] [address], [facility] [address] [place] [address] * XR MAMMO KATIA BILAT SCREEN (03/11/2024 [...] For Patients: As a result of the Cures Act, medical imaging exams and procedure reports are released immediately into your electronic medical record. You may view this report before your referring provider. If you have questions, please contact your health care provider. XR MAMMO KATIA BILAT SCREEN [[id number]] CLINICAL HISTORY: This is an asymptomatic 58 y.o. patient. INDICATION FOR EXAM: Mammogram Screening. TECHNIQUE: CC & MLO views were obtained. This study was evaluated with the assistance of Computer-Aided Detection. Breast Tomosynthesis was used in interpretation. COMPARISON FILM: Yes 05/10/22 [facility] 05/29/18 [facility] FINDINGS: There are scattered areas of fibroglandular density. There are no dominant masses, suspicious micro calcifications or areas of architectural distortion. us Tess POLO MAMMO Final Resu lt * ANTI HIV 1/2 (03/03/2023 9:10 AM CDT) HIV-1/HIV-2 SCREEN Non-Reacti ve Non-Reacti ve 03/03/2023 5:10 PM CDT [facility] Comment:HIV-1 p24 and HIV-1/ HIV-2 Ab Not Detected. Blood BLOOD SPECIMEN / Unknown Venipuncture / Unknown 03/03/2023 9:10 AM CDT 03/03/2023 9:11 AM CDT Tess POLO SEND OUTS Final Resu lt [facility] [address] [place] [address], [place] * COLONOSCOPY (04/24/2019 8:41 AM MANAGED SERVICES SALES CONSULTANT) 04/24/2019 8:41 AM MANAGED SERVICES SALES CONSULTANT Narrative Transcriptions Guillermo Conway MD - 04/24/2019 [...] reponse to care. [facility] and nursing notes for moderate sedation details. Total physician intraservice time was 15 minutes. Guillermo Conway MD 04/24/2019 9:07:01 AM This report has been signed electronically. Note Initiated On: 04/24/2019 8:41 AM Procedure Code(s): --- Professional --- 70503, Colonoscopy, flexible; diagnostic, including collection of specimen(s) bybrushing or washing, when performed (separateprocedure) Diagnosis Code(s): --- Professional --- Z12.11, Encounter for screening formalignant neoplasm of colon CPT copyright 2018 [place] [employer]. All rights reserved. The codes documented in this report are preliminary and upon fertilizer loader reviewmay be revised to meet current compliance requirements. Scope In: 8:50:38 AM Scope Withdrawal Time 0 hours 7 minutes 2 seconds Scope Out: 9:02:46 AM us Guillermo Conway MD PROCEDURE ORD Edited Re sult - Final * ANTI HCV (07/09/2014 9:38 AM MANAGED SERVICES SALES CONSULTANT) HEPATITIS C ANTIBODY Non-Reacti ve Non-Reacti ve 07/09/2014 4:09 PM MANAGED SERVICES SALES CONSULTANT [facility] Blood specimen (specimen) BLOOD SPECIMEN / Unknown Venipuncture / Unknown 07/09/2014 9:38 AM MANAGED SERVICES SALES CONSULTANT 07/09/2014 9:38 AM MANAGED SERVICES SALES CONSULTANT Narrative [facility] - 07/09/2014 4:09 PM MANAGED SERVICES SALES CONSULTANT Antibodies to HCV not detected; does not exclude the possibility of exposure to HCV. us Jessica Alberto NP SEND OUTS F inal Result [facility] [address] [place] [address], from Last 3 Months or Most Recently Relevant to Health Maintenance Insurance [facility] Advance Directives * Full Code (Latest Code Status on File) Date Activated Date Inactivated Comments 02/03/2022 10:24 AM 02/03/2022 7:08 PM Question Answer Comments Code Status Discussion: Reviewed Preferences Care Teams Civil Design Technician Relationship Specialty Start Date End Date Tess Macias PA [address] [place] [address] PCP - General Physician Power Plant Superintendent 03/03/23
[2024-11-19] MEDS: REGADENOSON 0.4 MG/5 ML SYRINGE IVP (10:03)
[2024-11-19] MEDS: SODIUM CHLORIDE 0.9 % (FLUSH) 10 ML SYRINGE IVF (10:03)
[2024-11-19 10:05] VITALS: BP 168/79; PULSE 72; RESP 16; O2SAT 97
--- NOTE | 2024-11-19 12:17 | W.PM.STED ---
Stress Test Note Date Date of test: 11/19/24 Providers Primary care provider: Tess Macias Stress test physician: Luis Stokes Stress Test Note Stress test ordered: Lexiscan Indication for test: Chest pain Stress test medicine: Lexiscan Results discussion: This very nice 59-year-old female presents for the above test after discussion the risks benefits and side effects she would like to proceed, pretest EKG showed normal sinus rhythm, poor R-wave progression is noted across the precordial leads which may be indicative of old [place], there was some ST wave abnormalities also 2. Rhythm is sinus, with a ventricular rate of 50 and a blood pressure 168 on 79. Standard Lexiscan protocol is employed over a 5 minute period, maximum heart rate was 121, maximum blood pressure is 176/92. She had no subjective changes during this test, there were no complaints, no dysrhythmias. And no changes to her EKG tracing. Impression: Negative electrographic portion of Lexiscan, subjectively negative Follow up suggested: Await nuclear imaging review, clinical correlation with this will be needed, patient left this testing facility in good condition, there were no complications.
== END 2024-11-19 10:12 | disposition home or self-care (01) ==
PROVIDERS: PCP Physician Assistant; Visit Provider Family Medicine
DX: R07.9 Chest pain, unspecified (principal)
CPT/HCPCS: 78452; 93016; 93017; A9500; J2785